=== PATIENT | female | born 1985 | race Caucasian/White ===

== ENCOUNTER 2022-08-13 07:42 | Observation (INO) ==
[2022-08-13] MEDS ORDERED: ONDANSETRON 4 MG/2 ML VIAL IV STA (07:58)
[2022-08-13] MEDS ORDERED: SODIUM CHLORIDE 0.9% 1,000 ML IV STA (07:58)
[2022-08-13] MEDS ORDERED: HYDROmorphone 1 MG/1 ML SYRINGE IV STA (07:58)
[2022-08-13 08:18] LABS: Basophils # 0.1 10*3/uL (0.0-0.2); Basophils % 0.7 % (0.0-0.8); Eosinophils # 0.3 10*3/uL (0.0-0.87); Hemoglobin 15.2 GM/DL (12.0-16.0); Immature Granulocytes % 0.3 %; Immature Granulocytes Absolute 0.02 #; Lymphocytes # 2.1 10*3/uL (1.4-4.0); Mean Corpuscular HGB Conc 34.5 GM/DL (32-36); Mean Corpuscular Volume 89.1 FL (87-102); Mean Platelet Volume 10.1 FL (9.6-12.0); Monocytes # 0.6 10*3/uL (0.11-0.8); Monocytes % 8.5 % (1.7-12.7); Neutrophils % 55.5 % (38.7-73.9); Platelet Count 376 T/CUMM (130-400); Red Blood Count 4.94 MC/CUMM (3.8-5.5); Red Cell Distribution Width 12.3 % (9.3-17.3); White Blood Count 6.8 T/CUMM (4-12)
[2022-08-13 08:54] LABS: Albumin 4.4 G/DL (3.4-5.0); Bilirubin,Total 0.8 MG/DL (0.20-1.00); Calcium 9.2 MG/DL (8.5-10.1); Osmolality,Calculated 277.7 MOS/KG (273-304); Potassium 4.3 MMOL/L (3.5-5.1)
[2022-08-13 09:43] LABS: Mucus,Urine Occasional /LPF (Occasional); RBC,Urine 2 /HPF (0-4); Squamous Epithelial Cell,Urine Occasional /HPF (0-10)
[2022-08-13 09:44] LABS: Glucose,Urine (UA) Negative (Negative); Ketones,Urine Negative (Negative); Protein,Urine Negative (Negative); Urine Appearance Clear (Clear); Urine Color Yellow (Yellow); Urine Specific Gravity < 1.005 (1.001-1.035); Urine pH 5.5 (4.5-8.0)
[2022-08-13 09:45] LABS: Bilirubin,Urine Negative (Negative); Blood, Urine Trace mg/dL (Negative); Nitrite,Urine Negative (Negative); Urine Urobilinogen 0.2 eU/dL (<2.0)
[2022-08-13] MEDS ORDERED: DEXTROSE 10% 250 ML BAG IV PRN (11:11)
[2022-08-13] MEDS ORDERED: ACETAMINOPHEN 325 MG TABLET PO PRN (11:11)
[2022-08-13] MEDS ORDERED: GLUCAGON 1 MG VIAL IM PRN (11:11)
[2022-08-13] MEDS: INSULIN LISPRO 100 UNIT/ML SUBCUT SCH ×3 (12:29→20:21)
[2022-08-13] MEDS ORDERED: HYDROmorphone 1 MG/1 ML SYRINGE IV PRN (13:06)
[2022-08-13] MEDS ORDERED: KETOROLAC 15 MG/1 ML VIAL IV PRN (13:06)
[2022-08-13] MEDS: DEXTROSE 5% LACTATED RINGERS 1,000 ML IV SCH (15:52)
[2022-08-13] MEDS: PIPERACILLIN/TAZOBACTAM 3,375 MG in SODIUM CHLORIDE 0.9% 100 ML IV SCH ×2 (15:53→20:24)
[2022-08-13] MEDS: HYDROmorphone 1 MG/1 ML SYRINGE IV PRN (15:53)
[2022-08-13] MEDS: ONDANSETRON 4 MG/2 ML VIAL IV PRN ×2 (15:54→20:27)
[2022-08-14] MEDS: DEXTROSE 5% LACTATED RINGERS 1,000 ML IV SCH ×3 (01:21→14:02)
[2022-08-14] MEDS: HYDROmorphone 1 MG/1 ML SYRINGE IV PRN (01:22)
[2022-08-14] MEDS: PIPERACILLIN/TAZOBACTAM 3,375 MG in SODIUM CHLORIDE 0.9% 100 ML IV SCH (02:34)
[2022-08-14 06:12] LABS: Basophils # 0.1 10*3/uL (0.0-0.2); Basophils % 0.7 % (0.0-0.8); Eosinophils # 0.5 10*3/uL (0.0-0.87); Eosinophils % 6.9 % (0.00-10.9); Hematocrit 40.2 VOL% (35.7-47.0); Hemoglobin 13.2 GM/DL (12.0-16.0); Immature Granulocytes % 0.4 %; Immature Granulocytes Absolute 0.03 #; Lymphocytes # 2.1 10*3/uL (1.4-4.0); Lymphocytes % 27.2 % (21.3-54.2); Mean Corpuscular HGB Conc 32.8 GM/DL (32-36); Mean Corpuscular Volume 90.7 FL (87-102); Monocytes # 0.5 10*3/uL (0.11-0.8); Monocytes % 6.2 % (1.7-12.7); Neutrophils % 58.6 % (38.7-73.9); Platelet Count 330 T/CUMM (130-400); Red Blood Count 4.43 MC/CUMM (3.8-5.5); Red Cell Distribution Width 12.2 % (9.3-17.3); White Blood Count 7.6 T/CUMM (4-12)
[2022-08-14] MEDS ORDERED: INDOCYANINE GREEN 25 MG VIAL IV ONE (06:30)
[2022-08-14] MEDS ORDERED: LIDOCAINE 2% 5 ML VIAL ONE (06:34)
[2022-08-14] MEDS ORDERED: fentaNYL 100 MCG/2 ML VIAL ONE ×2 (06:34→07:38)
[2022-08-14] MEDS ORDERED: ROCURONIUM 50 MG/5 ML VIAL IV ONE (06:34)
[2022-08-14] MEDS ORDERED: MIDAZOLAM 2 MG/2 ML VIAL ONE (06:34)
[2022-08-14] MEDS ORDERED: propofoL 200 MG/20 ML VIAL IV ONE (06:34)
[2022-08-14 06:39] LABS: Albumin 3.6 G/DL (3.4-5.0); Calcium 8.7 MG/DL (8.5-10.1); Osmolality,Calculated 272.8 MOS/KG (273-304); Potassium 3.9 MMOL/L (3.5-5.1); Total Protein 6.8 G/DL (6.4-8.2)
[2022-08-14] MEDS ORDERED: BUPIVACAINE MPF 0.25% 10 ML VIAL ONE (06:41)
[2022-08-14] MEDS ORDERED: LIDOCAINE 1%/EPI INJ 20 ML VIAL ONE (06:42)
[2022-08-14] MEDS ORDERED: FAMOTIDINE 20 MG/2 ML VIAL IV ONE (06:58)
[2022-08-14] MEDS ORDERED: SUCCINYLCHOLINE 200 MG/10 ML VIAL ONE (07:15)
[2022-08-14] MEDS ORDERED: diphenhydrAMINE 50 MG/1 ML VIAL ONE (07:15)
[2022-08-14] MEDS ORDERED: DEXAMETHASONE 4 MG/1 ML VIAL ONE (07:18)
[2022-08-14] MEDS ORDERED: ONDANSETRON 4 MG/2 ML VIAL ONE (07:18)
[2022-08-14] MEDS ORDERED: TISSUE ADHESIVE 1 EACH APPLICATOR TOP ONE (07:19)
[2022-08-14] MEDS ORDERED: ACETAMINOPHEN INJ 1,000 MG/100 ML VIAL IV ONE (07:19)
[2022-08-14] MEDS ORDERED: KETOROLAC 30 MG/1 ML VIAL ONE (07:19)
[2022-08-14] MEDS: INSULIN LISPRO 100 UNIT/ML SUBCUT SCH ×2 (07:20→14:02)
[2022-08-14] MEDS ORDERED: ceFAZolin 1,000 MG VIAL ONE (07:35)
[2022-08-14] MEDS ORDERED: SEVOFLURANE 1 UNIT/15 MINUTE INH ONE (07:46)
[2022-08-14] MEDS ORDERED: PHENYLEPHRINE 1 MG/10 ML SYRINGE IV ONE (07:46)
[2022-08-14] MEDS ORDERED: SUGAMMADEX 200 MG/2 ML VIAL IV ONE (07:52)
[2022-08-14] MEDS ORDERED: ONDANSETRON 4 MG/2 ML VIAL IV PRN (08:23)
[2022-08-14] MEDS ORDERED: MEPERIDINE 25 MG/1 ML VIAL IV PRN (08:23)
[2022-08-14] MEDS ORDERED: LACTATED RINGERS 1,000 ML IV SCH (08:30)
[2022-08-14] MEDS ORDERED: DEXTROSE 50% 25 GM/50 ML VIAL IV PRN (08:44)
[2022-08-14] MEDS ORDERED: GLUCAGON 1 MG VIAL IM PRN (08:44)
[2022-08-14] MEDS ORDERED: PANTOPRAZOLE 40 MG TABLET PO SCH (09:00)
[2022-08-14 12:15] VITALS: BP 112/71
== END 2022-08-14 15:02 | disposition home or self-care (01) ==
LOC: N.EDINP 07:42 → N.ED 07:42 → N.EDINP 11:30 → N.2E 12:04
PROVIDERS: ADMIT Surgery; ATTEND Surgery